=== PATIENT | female | born 1970 ===

== ENCOUNTER 2020-08-02 10:15 | Inpatient (IN) | payer OTHER ==
[~2020-08-02] VITALS: Ht 160 cm; Wt 79.4 kg
[2020-08-02] MEDS ORDERED: SYNTHROID75 MCG PO (12:17)
[2020-08-02] MEDS ORDERED: INTEGRA CAPSUL1 EACH PO (12:18)
[2020-08-02] MEDS ORDERED: ZETIA10 MG PO (12:18)
[2020-08-06] MEDS ORDERED: OMEPRAZOLE20 MG (09:52)
[2020-08-06] MEDS ORDERED: INTEGRA PLUS C1 EACH (09:52)
[2020-08-07] MEDS ORDERED: IBU800 MG PO (07:05)
[2020-08-07] MEDS ORDERED: ANTI-GAS166 MG PO (07:05)
== END 2020-08-07 09:00 | disposition home or self-care (01) | DRG 743 ==
LOC: O/R 08-06 05:46 → SURH 08-06 07:00 → OB/GYN 08-06 13:33
PROVIDERS: ADMIT Obstetrics & Gynecology Gynecology; ATTEND Obstetrics & Gynecology Gynecology
PROC: 0UT1FZZ Resection of Left Ovary, Via Natural or Artificial Opening With Percutaneous Endoscopic Assistance (ICD-10-PCS; 2020-08-06)
PROC: 0UT6FZZ Resection of Left Fallopian Tube, Via Natural or Artificial Opening With Percutaneous Endoscopic Assistance (ICD-10-PCS; 2020-08-06)
PROC: 0UB57ZZ Excision of Right Fallopian Tube, Via Natural or Artificial Opening (ICD-10-PCS; 2020-08-06)
PROC: 0UT9FZZ Resection of Uterus, Via Natural or Artificial Opening With Percutaneous Endoscopic Assistance (ICD-10-PCS; principal; 2020-08-06 07:00)
DX: D25.1 Intramural leiomyoma of uterus (principal); D25.2 Subserosal leiomyoma of uterus; N72 Inflammatory disease of cervix uteri; N80.0 Endometriosis of uterus; N83.02 Follicular cyst of left ovary; N83.12 Corpus luteum cyst of left ovary; N83.292 Other ovarian cyst, left side; N92.1 Excessive and frequent menstruation with irregular cycle; E03.8 Other specified hypothyroidism